=== PATIENT | male | born 1945 | race Native Hawaiian/Other Pacific Islander ===

== ENCOUNTER → 2020-12-20 | Outpatient (CLI) | payer MEDICARE ==
--- NOTE | 2020-12-20 09:12 | REPPI ---
INDICATION: RIGHT FOREARM AND HUMERAL SOFT TISSUE MASS COMPARISON: None. TECHNIQUE: PA and lateral. FINDINGS: The mediastinum and cardiac silhouette are normal. The lung snider suggest chronic emphysematous changes without acute consolidation, effusion, or pneumothorax. The skeletal structures demonstrate osteopenia and degenerative changes primarily involving the thoracic spine and bilateral shoulders. IMPRESSION: No acute cardiopulmonary process. <Electronically signed by Ricky Webb > 12/20/20 0949
[2020-12-20 10:32] LABS: BASO # 0.1 10^3/uL (0.0-0.2); BASO % 0.9 % (0.0-1.0); EOS # 0.3 10^3/uL (0.0-0.5); EOS % 4.8 % (0.0-3.0); HEMATOCRIT 43.7 % (42.0-52.0); HEMOGLOBIN 13.9 g/dl (13.5-17.5); LYMPH # 3.4 10^3/uL (1.5-5.0); LYMPH % 49.3 % (24.0-44.0); MEAN CORPUSCULAR HEMOGLOBIN 27.3 pg (27.0-33.0); MEAN CORPUSCULAR HGB CONC 31.8 g/dl (32.0-36.5); MEAN CORPUSCULAR VOLUME 85.7 fl (80.0-96.0); MONO # 0.6 10^3/uL (0.0-0.8); MONO % 9.3 % (2.0-8.0); NEUTROPHILS # 2.5 10^3/uL (1.5-8.5); NEUTROPHILS % 35.6 % (36.0-66.0); PLATELET COUNT, AUTOMATED 203 10^3/uL (150-450); WHITE BLOOD COUNT 6.9 10^3/uL (4.0-10.0)
[2020-12-20 11:02] LABS: HEMOGLOBIN A1c 5.8 %
[2020-12-20 11:14] LABS: ALBUMIN 4.4 GM/DL (3.2-5.2); ALT/SGPT 24 U/L (12-78); BILIRUBIN,TOTAL 0.8 MG/DL (0.2-1.0); BLOOD UREA NITROGEN 14 MG/DL (7-18); CALCIUM LEVEL 9.6 MG/DL (8.8-10.2); CARBON DIOXIDE LEVEL 27 MEQ/L (21-32); CHLORIDE LEVEL 106 MEQ/L (98-107); CHOLESTEROL LEVEL 177 MG/DL (<200); CHOLESTEROL RISK RATIO 2.458 (<5); CREATININE FOR GFR 0.96 MG/DL (0.70-1.30); FERRITIN 310 NG/ML (26-388); FREE THYROXINE INDEX 2.6 % (1.4-3.8); GLOMERULAR FILTRATION RATE > 60.0 (>42); GLUCOSE, FASTING 110 MG/DL (70-100); HDL CHOLESTEROL 72 MG/DL (>40); IRON (FE) 155 UG/DL (65-175); LDH LACTATE DEHYDROGENASE 141 U/L (87-241); LDL CHOLESTEROL 87 MG/DL (<100); MAGNESIUM LEVEL 2.4 MG/DL (1.8-2.4); NON-HDL-C 105 MG/DL; PERCENT SATURATION 55.4 % (19.7-50.0); POTASSIUM SERUM 4.2 MEQ/L (3.5-5.1); SODIUM LEVEL 139 MEQ/L (136-145); T UPTAKE 32 % (33-40); THYROXINE (T4) 8.2 UG/DL (4.5-12.0); TOTAL IRON BINDING CAPACITY 280 UG/DL (250-450); TOTAL PROTEIN 8.4 GM/DL (6.4-8.2); TRIGLYCERIDES LEVEL 89 MG/DL (<150)
[2020-12-20 13:10] LABS: STABLE ALKPHOS < 10 U/L
== END ==
LOC: M PLAIMG 08:09
PROVIDERS: ATTEND Surgery
DX: R22.31 Localized swelling, mass and lump, right upper limb (principal); J98.4 Other disorders of lung; M85.88 Other specified disorders of bone density and structure, other site; Z79.899 Other long term (current) drug therapy
CPT/HCPCS: 36415; 71046; 80053; 80061; 82728; 83036; 83550; 83615; 83735; 84078; 84436; 84443; 84466; 84479; 85025; 85046; G0103

== ENCOUNTER → 2020-12-25 | Outpatient (CLI) | payer MEDICARE ==
--- NOTE | 2020-12-28 11:05 | REP ---
INDICATION: RT HUMERUS MASS. COMPARISON: None. TECHNIQUE: Multiple sequences obtained in the axial, coronal and sagittal planes. FINDINGS: The palpable lump is marked on the skin. At that location there is a serpiginous structure surrounded by fluid which appears to represent a completely torn long head of biceps tendon which has retracted to the level of the mid humerus. The biceps tendon is not seen within the bicipital groove more superiorly. There is a mild glenohumeral joint effusion. There appears to be a full-thickness tear of the supraspinatus tendon. The other visualized soft tissue structures appear unremarkable with no abnormal signal or fluid collection. The humerus demonstrates normal bone marrow signal, with no bone marrow edema or occult fracture. IMPRESSION: Palpable lump corresponds to a completely torn long head biceps tendon which is retracted to the level of mid humerus, with mild surrounding fluid. There also appears to be a full-thickness tear of the supraspinatus tendon. The structures of the right shoulder would be better evaluated with a dedicated MRI of the shoulder if clinically indicated. <Electronically signed by Ubaldo Park > 12/28/20 [id number]
== END ==
LOC: M RAD 13:43
PROVIDERS: ATTEND Surgery
DX: S46.111A Strain of muscle, fascia and tendon of long head of biceps, right arm, initial encounter (principal); R22.31 Localized swelling, mass and lump, right upper limb; X58.XXXA Exposure to other specified factors, initial encounter; Y92.9 Unspecified place or not applicable; Y99.9 Unspecified external cause status

== ENCOUNTER → 2020-12-30 | Outpatient (CLI) | payer MEDICARE ==
--- NOTE | 2020-12-30 16:16 | REP ---
INDICATION: MASS RT FOREARM ? TENDON TEAR. COMPARISON: None. TECHNIQUE: Coronal oblique T1, T2 fat sat, sagittal oblique T2 fat sat, axial T2 fat sat, gradient echo. FINDINGS: Rotator cuff: There is a full-thickness tear of the anterior aspect of the supraspinatus tendon. The gap in the tendon measures approximately 2.5 cm in length. There is a partial tear of the subscapularis tendon. There is moderate tendinopathy/tendinitis of the infraspinatus tendon, with a partial undersurface tear. Acromioclavicular joint: There are [id number] hypertrophic degenerative changes of the acromioclavicular joint. Acromion: Type 2 Biceps Tendon: Biceps tendon is torn and retracted, it is not seen within the bicipital groove. Mild fluid is seen within the bicipital groove. Hill Sach's deformity: None. Deltoid muscle: Unremarkable. Labrum: The anterior aspect of the superior labrum is torn. Cartilage: There is mild diffuse chondromalacia with no defects. Bone marrow: Subcentimeter subcortical cysts are seen in the humeral head. Joint fluid: There is a moderate joint effusion, with mild fluid extending into the subacromial/subdeltoid bursae. IMPRESSION: Full-thickness tear anterior aspect of supraspinatus tendon. Partial tear subscapularis tendon. Moderate tendinopathy/tendinitis infraspinatus tendon, with a partial undersurface tear. Mild to moderate hypertrophic degenerative changes of the acromioclavicular joint with a type 2 acromion. Biceps tendon is torn and retracted, the bicipital groove contains a mild amount of fluid. There is a tear of the anterior aspect of the superior labrum. Moderate joint effusion. Mild fluid in the subacromial/subdeltoid bursae. <Electronically signed by Ubaldo Park > 12/30/20 0059
== END ==
LOC: M RAD 14:18
PROVIDERS: ATTEND Surgery
DX: M75.101 Unspecified rotator cuff tear or rupture of right shoulder, not specified as traumatic (principal); M25.411 Effusion, right shoulder